=== PATIENT | male | born 1990 | race Caucasian/White ===

== ENCOUNTER 2016-12-29 21:26 | Emergency (ER) ==
[2016-12-29] MEDS ORDERED: DIPHTHERIA/TETANUS ADULT IM ONE (22:20)
[2016-12-29] MEDS ORDERED: ROCEPHIN IM ONE (22:20)
[2016-12-29] MEDS ORDERED: XYLOCAINE-MPF 1% INJ ONE (22:20)
[2016-12-29] MEDS ORDERED: XYLOCAINE 1% INJ ONE (22:47)
[2016-12-29 23:14] VITALS: BP 120/60
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
--- NOTE | 2016-12-30 09:02 | Diag Imaging Result Document ---
PROCEDURE NAME: FINGER(S)-LEFT - 12/29/2016 X-RAY LEFT PINKY FINGER 3 VIEWS, 12/29/2016: COMPARISON: None. FINDINGS: There is mildly displaced, transverse fracture through the shaft of the distal phalanx of the pinky finger. No dislocations. IMPRESSION: Pinky finger fracture.
== END 2016-12-29 23:29 | disposition home or self-care (01) ==
LOC: ED 21:26
DX: S62.637A Displaced fracture of distal phalanx of left little finger, initial encounter for closed fracture (principal); S61.217A Laceration without foreign body of left little finger without damage to nail, initial encounter; W23.1XXA Caught, crushed, jammed, or pinched between stationary objects, initial encounter; Z23 Encounter for immunization
CPT/HCPCS: 73140; 90714; J0696